=== PATIENT | female | born 1950 | race Caucasian/White ===

== ENCOUNTER 2020-06-30 09:44 | Emergency (ER) | payer MEDICARE, OTHER ==
[~2020-06-30] VITALS: Ht 162.6 cm; Wt 82.5 kg
[2020-06-30 09:48] VITALS: BP 104/61
--- NOTE | 2020-06-30 09:54 | PHYS DOC ---
General Adult EDM: Chief Complaint: MULTIPLE COMPLAINTS HPI: HPI: The history was obtained from the patient. Patient is a 69-year-old female with PMH hypothyroidism, hypertension, anxiety who presents with a chief complaint of lower extremity swelling bilaterally. Patient states she experienced a non-s yncopal fall 2 hours prior to arrival. States she was walking with the assistance of her walker when the walker gave out. She states this caused her to fall to the ground. She denies striking her head or loss of consciousness. She states that she has no pain after her fall. She states that she was unable to get herself off of the floor. She states that she was on the ground for approximate 2 hours. She states that she did not want to come to the emergency department but her family and EMS convinced her to have her lower extremities evaluated. She notes lower extremity swelling. She is unsure of how long this is been going on for. She notes this is happened once 6 years ago and she received medication. She does not know what medicine she took. Denies chest pain or shortness of breath. Denies syncope. Denies fevers or cough. Denies any recent medication changes or antibiotics. No other complaints. Patient denies any history of immobilization greater than 48 hours, recent hospitalizations, recent surgery, recent trauma, , oral contraceptive usage, hormone replacement therapy, air travel greater than 8 hours, recent infectious disease, or general deterioration of their overall condition. Review of Systems: Review of Systems: Constitutional: Denies fever or chills Eyes: Denies change in visual acuity HENT: Denies nasal congestion or sore throat Respiratory: Denies cough or shortness of breath Cardiovascular: Denies chest pain or edema GI: Denies abdominal pain, nausea, vomiting, bloody stools or diarrhea : Denies dysuria Musculoskeletal: Denies back pain or joint pain Integument: Denies rash Neurologic: Denies headache, focal weakness or sensory changes Endocrine: Denies polyuria or polydipsia Lymphatic: Denies swollen glands Psychiatric: Denies depression or anxiety Heart Score: Risk Factors: Risk Factors: DM, Current or recent (<one month) smoker, HTN, HLP, family hi story of CAD, obesity. Risk Scores: Score 0 - 3: 2.5% MACE over next 6 weeks - Discharge Home Score 4 - 6: 20.3% MACE over next 6 weeks - Admit for Clinical Observation Score 7 - 10: 72.7% MACE over next 6 weeks - Early Invasive Strategies Physical Exam: PE: Constitutional: Well developed, well nourished, no acute distress, non-toxic appearance. [] HENT: Normocephalic, atraumatic, bilateral external ears normal, oropharynx moist, no oral exudates, nose normal. [] Eyes: PERRLA, EOMI, conjunctiva normal, no discharge. [] Neck: Normal range of motion, no tenderness, supple, no stridor. [] Cardiovascular:Heart rate regular rhythm, no murmur [] Lungs & Thorax: Bilateral breath sounds clear to auscultation [] Abdomen: Bowel sounds normal, soft, no tenderness, no masses, no pulsatile masses. [] Skin: Warm, dry, no erythema, no rash. [] Back: No tenderness, no CVA tenderness. [] Extremities: No tenderness, no cyanosis, no clubbing, ROM intact. +2-4 pitting edema lower extremities bilaterally. Mild overlying erythema to the left lower extremity. Neurologic: Alert and oriented X 3, normal motor function, normal sensory function, no focal deficits noted. [] Psychologic: Affect normal, judgement normal, mood normal. [] Current Patient Data: Labs: Laboratory Tests Test 06/30/20 10:10 White Blood Count 8.6 x10^3/uL Red Blood Count 3.34 x10^6/uL Hemoglobin 11.1 g/dL Hematocrit 32.7 % Mean Corpuscular Volume 98 fL Mean Corpuscular Hemoglobin 33 pg Mean Corpuscular Hemoglobin Concent 34 g/dL Red Cell Distribution Width 12.9 % Platelet Count 279 x10^3/uL Neutrophils (%) (Auto) 85 % Lymphocytes (%) (Auto) 8 % Monocytes (%) (Auto) 7 % Eosinophils (%) (Auto) 0 % Basophils (%) (Auto) 0 % Neutrophils # (Auto) 7.3 x10^3uL Lymphocytes # (Auto) 0.7 x10^3/uL Monocytes # (Auto) 0.6 x10^3/uL Eosinophils # (Auto) 0.0 x10^3/uL Basophils # (Auto) 0.0 x10^3/uL Sodium Level 127 mmol/L Potassium Level 4.5 mmol/L Chloride Level 94 mmol/L Carbon Dioxide Level 23 mmol/L Anion Gap 10 Blood Urea Nitrogen 20 mg/dL Creatinine 1.4 mg/dL Estimated GFR (Cockcroft-Gault) 37.5 Glucose Level 114 mg/dL Calcium Level 8.8 mg/dL Creatine Kinase 62 U/L DA-Vvq-[id number]-Type Natriuretic Peptide 939 pg/mL Current Medications Medications (Trade) Dose Ordered Sig/La Route PRN Reason Start Time Stop Time Status Last Admin Dose Admin Cephalexin HCl (Keflex) 1,000 mg 1X ONCE PO 06/30/20 10:45 06/30/20 11:01 DC 06/30/20 11:02 Vital Signs: Vital Signs Date Time Temp Pulse Resp B/P (MAP) Pulse Ox O2 Delivery O2 Flow Rate FiO2 06/30/20 09:48 98.3 92 20 104/61 (75) 97 06/30/20 09:44 98.3 92 18 104/61 (75) 97 Room Air EKG: EKG: [] Radiology/Procedures: Radiology/Procedures: [address] [address] IMAGING REPORT Signed PATIENT: DANIELA CURTIS ACCOUNT: [id number] : 1950 LOCATION: ER AGE: 69 SEX: F EXAM STATUS: REG ER ORD. PHYSICIAN: ABY GUDINO DO REASON: leg swelling PROCEDURE: VENOUS LOWER EXT BILATERAL Bilateral lower extremity venous doppler ultrasound History: Leg swelling, blisters of the calves bilaterally Comparison: None Findings: Multiple grayscale, color, and duplex spectral analysis sonographic images were acquired of the bilateral lower extremity veins to evaluate for the presence of DVT. There is normal phasicity. Normal compression, color-flow, and augmentation is demonstrated from the bilateral common femoral to the popliteal veins. There is normal color flow of the proximal greater saphenous and profunda femoris veins. Calf veins are poorly visualized due to patient's body habitus. Impression: 1. There is no evidence of deep venous thrombosis from the bilateral common femoral to the popliteal veins. Calf veins are poorly visualized. Electronically signed by: Eliza Toribio MD (06/30/2020 11:00 AM) [id number] DICTATED AND SIGNED BY: ELIZA TORIBIO MD DATE: 06/30/20 1100 CC: PCPLEO; ABY GUDINO DO ~ [place] [address] IMAGING REPORT Signed PATIENT: DANIELA CURTIS ACCOUNT: [id number] : 1950 LOCATION: ER AGE: 69 SEX: F EXAM STATUS: REG ER ORD. PHYSICIAN: ABY GUDINO DO REASON: swelling PROCEDURE: CHEST AP ONLY Examination: CHEST AP ONLY History: swelling Comparison: None. Findings: AP portable upright frontal view of the chest was obtained. The cardiomediastinal silhouette is normal. Lungs are clear. There is no pneumothorax. No pleural effusion is appreciated. No acute bone abnormality. Plate and screws involving the right humeral head and proximal shaft. IMPRESSION: No acute cardiopulmonary process. Electronically signed by: Jae Littlejohn MD (06/30/2020 10:15 AM) [id number] DICTATED AND SIGNED BY: JAE LITTLEJOHN MD DATE: 06/30/20 1015 CC: PCPLEO; ABY GUDINO DO ~ [] Course & Med Decision Making: Course & Med Decision Making Pertinent Labs and Imaging studies reviewed. (See chart for details) [] Patient is a 69-year-old female who presents with a chief complaint of fall and bilateral leg swelling. States that she did not want to come to the hospital but EMS and her daughter convinced her to. Initial vital signs unremarkable. Physical exam noted above. EKG deferred as she denies any chest pain or shortness of breath prior to falling. She describes a non-syncopal fall. Basic labs were obtained. She does have a low sodium of 127 with an DREA of 1.4. CK normal. Slightly elevated proBNP. Ultrasound imaging of the legs bilaterally was obtained reveals no DVT. Left lower extremity does have some erythema could be very early clinical cellulitis. I did discuss results of labs and imaging in great detail the patient. I did discuss my recommendation for hospitalization given her abnormal electrolytes. However, I am also concerned for her gait stability at home. While transferring to bed to commode the patie nt did appear quite unstable. Patient states that she would like to go home and is declining hospitalization. She states that she has a walker at home to assist her in ambulation. I did explain to her that electrolyte abnormalities can be life-threatening without detection. Patient does appear to have capacity at this time. She is alert and oriented x3. She does have understanding for basic healthcare needs and potential consequences including life loss. At this time patient is electing to leave AGAINST MEDICAL ADVICE. I encouraged her to report back to emergency department at any time should he want to be reevaluated. Instructed to follow-up with her primary care physician in the next 1-2 business days. Will be discharged home with a course of Keflex for her left lower extremity. Dragon Disclaimer: [employer]Hop Disclaimer: This electronic medical record was generated, in whole or in part, using a voice recognition dictation system. Departure Departure: Impression: Primary Impression: Fall Qualified Codes: W19.XXXA - Unspecified fall, initial encounter Additional Impressions: Leg swelling Hyponatremia DREA (acute kidney injury) Disposition: 07 AGAINST MEDICAL ADVICE Condition: STABLE Patient Instructions: Hyponatremia Additional Instructions: Please follow-up with your primary care physician in the next 1-2 business days. Please return the emergency department at any time should he want to be reevaluated. Scripts Cephalexin (KEFLEX) 500 Mg Capsule 500 MG PO QID for cellulitis for 7 Days, #28 TAB Prov: ABY GUDINO DO 06/30/20 Justification of Admission: Justification of Admission: Justification of Admission Dx: N/A ABY GUDINO DO Jun 30, 2020 09:54
--- NOTE | 2020-06-30 10:18 | RAD ---
Examination: CHEST AP ONLY History: swelling Comparison: None. Findings: AP portable upright frontal view of the chest was obtained. The cardiomediastinal silhouette is normal. Lungs are clear. There is no pneumothorax. No pleural effusion is appreciated. No acute bone abnormality. Plate and screws involving the right humeral head and proximal shaft. IMPRESSION: No acute cardiopulmonary process. Electronically signed by: Blayne Stroud MD (06/30/2020 10:15 AM) [id number]
[2020-06-30 10:43] LABS: BASO % 0 % (0-3); EOS % 0 % (0-3); HEMATOCRIT 32.7 % (36.0-47.0); HEMOGLOBIN 11.1 g/dL (12.0-15.5); LYMPH # 0.7 x10^3/uL (1.0-4.8); LYMPH % 8 % (24-48); MEAN CORPUSCULAR HEMOGLOBIN 33 pg (25-35); MEAN CORPUSCULAR HGB CONC 34 g/dL (31-37); MEAN CORPUSCULAR VOLUME 98 fL (79-100); MONO # 0.6 x10^3/uL (0.0-1.1); MONO % 7 % (0-9); NEUT # 7.3 x10^3uL (1.8-7.7); NEUT % 85 % (31-73); PLATELET COUNT 279 x10^3/uL (140-400); RED BLOOD COUNT 3.34 x10^6/uL (3.50-5.40); RED CELL DISTRIBUTION WIDTH 12.9 % (11.5-14.5); WHITE BLOOD COUNT 8.6 x10^3/uL (4.0-11.0)
[2020-06-30] MEDS ORDERED: CEPHALEXIN 250 MG CAPSULE PO ONE (10:45)
--- NOTE | 2020-06-30 11:03 | RAD ---
Bilateral lower extremity venous doppler ultrasound History: Leg swelling, blisters of the calves bilaterally Comparison: None Findings: Multiple grayscale, color, and duplex spectral analysis sonographic images were acquired of the bilateral lower extremity veins to evaluate for the presence of DVT. There is normal phasicity. Normal compression, color-flow, and augmentation is demonstrated from the bilateral common femoral to the popliteal veins. There is normal color flow of the proximal greater saphenous and profunda femoris veins. Calf veins are poorly visualized due to patient's body habitus. Impression: 1. There is no evidence of deep venous thrombosis from the bilateral common femoral to the popliteal veins. Calf veins are poorly visualized. Electronically signed by: Kevin Linares MD (06/30/2020 11:00 AM) [id number]
[2020-06-30 11:28] LABS: CALCIUM 8.8 mg/dL (8.5-10.1); CREATININE 1.4 mg/dL (0.6-1.0); GFR 37.5; POTASSIUM 4.5 mmol/L (3.5-5.1)
[2020-06-30] MEDS ORDERED: CEPH-264 PO (12:10)
[2020-06-30 12:39] LABS: BACTERIA,URINE MANY /HPF (0-FEW); BILIRUBIN,URINE NEG (NEG); CLARITY,URINE HAZY; COLOR,URINE YELLOW; GLUCOSE,URINE NEG (NEG); NITRITE,URINE POS (NEG); SQUAMOUS EPITHELIAL CELL,UR FEW /LPF; UROBILINOGEN,URINE 0.2 mg/dL (0.2 mg/dL); WBC,URINE 20-40 /HPF (0-4)
== END 2020-06-30 12:15 | disposition left against medical advice (07) ==
LOC: ER 09:44
DX: N17.9 Acute kidney failure, unspecified (principal); E87.1 Hypo-osmolality and hyponatremia; R22.43 Localized swelling, mass and lump, lower limb, bilateral; E03.9 Hypothyroidism, unspecified; I10 Essential (primary) hypertension; F41.9 Anxiety disorder, unspecified; W18.39XA Other fall on same level, initial encounter; Y93.01 Activity, walking, marching and hiking; Y92.89 Other specified places as the place of occurrence of the external cause; Y99.8 Other external cause status
CPT/HCPCS: 36415; 71045; 80048; 81001; 82550; 83880; 85025; 87077; 87086; 87186; 93970; 99285

== ENCOUNTER 2020-07-24 15:59 | Inpatient (IN) | payer MEDICARE ==
[~2020-07-24] VITALS: Ht 162.6 cm; Wt 76.5 kg
[~2020-07-24 15:59] MED LIST: CEPH-264 PO
--- NOTE | 2020-07-24 16:20 | PHYS DOC ---
Past History Past Medical History: Anxiety, Dementia, Hypertension Past Surgical History: Tonsillectomy, Other Additional Past Surgical Histo: L foot Alcohol Use: Occasionally General Adult EDM: Chief Complaint: CELLULITIS HPI: HPI: 67-year-old brought in by EMS for multiple falls. Patient has been following at home, uses walker but says she has liver leg weakness. Was seen recently and treated for cellulitis. Patient states she took her antibiotics but per said she never had a prescription filled. Patient has not seen her primary care provider in about 6 months because they order Lolita. Per son she has had worsening memory issues, for example paying bills. Lives alone and is at times been unable to get herself up off the floor. Longest downtime 1 hour. She denies any head injuries or loss of consciousness. Review of Systems: Review of Systems: Constitutional: Denies fever or chills Eyes: Denies change in visual acuity HENT: Denies nasal congestion or sore throat Respiratory: Denies cough or shortness of breath Cardiovascular: Denies chest pain or edema GI: Denies abdominal pain, nausea, vomiting, bloody stools or diarrhea : Denies dysuria Musculoskeletal: Denies back pain or joint pain Integument: Denies rash redness to left lower leg Neurologic: Denies headache, lower extremity weakness or sensory changes Endocrine: Denies polyuria or polydipsia Lymphatic: Denies swollen glands Psychiatric: Denies depression or anxiety Heart Score: Risk Factors: Risk Factors: DM, Current or recent (<one month) smoker, HTN, HLP, family history of CAD, obesity. Risk Scores: Score 0 - 3: 2.5% MACE over next 6 weeks - Discharge Home Score 4 - 6: 20.3% MACE over next 6 weeks - Admit for Clinical Observation Score 7 - 10: 72.7% MACE over next 6 weeks - Early Invasive Strategies Allergies: Allergies: Allergies Coded Allergies Type Severity Reaction Last Updated Verified No Known Drug Allergies 06/30/20 No Physical Exam: PE: Constitutional: Well developed, well nourished, no acute distress, non-toxic appearance. [] HENT: Normocephalic, atraumatic, bilateral external ears normal, oropharynx moist, no oral exudates, nose normal. [] Eyes: PERRLA, EOMI, conjunctiva normal, no discharge. [] Neck: Normal range of motion, no tenderness, supple, no stridor. [] Cardiovascular:Heart rate regular rhythm, no murmur [] Lungs & Thorax: Bilateral breath sounds clear to auscultation [] Abdomen: Bowel sounds normal, soft, no tenderness, no masses, no pulsatile masses. [] Skin: Warm, dry, no erythema, no rash. [] Right lower extremity erythema Back: No tenderness, no CVA tenderness. [] Extremities: No tenderness, no cyanosis, no clubbing, ROM intact, no edema. [] Neurologic: Alert poor memory, normal motor function, normal sensory function, no focal deficits noted. [] Psychologic: Affect normal, judgement normal, mood normal. [] Current Patient Data: Vital Signs: Vital Signs Date Time Temp Pulse Resp B/P (MAP) Pulse Ox O2 Delivery O2 Flow Rate FiO2 07/24/20 16:00 98.3 84 18 89/52 (64) 98 Room Air EKG: EKG: Normal sinus rhythm, heart rate 90 bpm, normal axis, no ectopy, normal intervals, no ST elevation or depression [] Radiology/Procedures: Radiology/Procedures: CHEST AP ONLY Clinical History: Reason: fall / Spl. Instructions: / History: Technique: AP view of the chest was obtained at 07/24/2020 4:21 PM. Comparison: June 30, 2020. Findings: The cardiomediastinal silhouette is normal. The pulmonary vasculature is normal. The lungs and pleural margins are clear. There has been prior repair of a left humeral head neck fracture. Impression: No evidence of an acute cardiopulmonary process.[] Impressions: CT Head W/O Contrast: History: Reason: falls / Spl. Instructions: / History: Comparison: none Axial images were obtained without contrast. There is moderate diffuse atrophy. There is no mass effect, extraaxial fluid collections or hydrocephalus. There is no focal loss of jalloh-white matter distinction to suggest acute ischemia, i.e. stroke. Impression: No acute findings. PQRS Compliance Statement: One or more of the following individualized dose reduction techniques were utilized for this examination: 1. Automated exposure control 2. Adjustment of the mA and/or kV according to patient size 3. Use of iterative reconstruction technique Course & Med Decision Making: Course & Med Decision Making Pertinent Labs and Imaging studies reviewed. (See chart for details) [] Dragon Disclaimer: Dragon Disclaimer: This electronic medical record was generated, in whole or in part, using a voice recognition dictation system. Departure Departure: Disposition: DC HOME SELF CARE/HOMELESS Condition: STABLE Referrals: PCP,LEO (PCP) SUZANNA DEL A ROSA MD Jul 24, 2020 16:20
[2020-07-24 16:49] LABS: BASO % 0 % (0-3); EOS % 0 % (0-3); HEMATOCRIT 30.4 % (36.0-47.0); HEMOGLOBIN 10.2 g/dL (12.0-15.5); LYMPH % 14 % (24-48); MEAN CORPUSCULAR HEMOGLOBIN 33 pg (25-35); MEAN CORPUSCULAR HGB CONC 34 g/dL (31-37); MEAN CORPUSCULAR VOLUME 98 fL (79-100); MONO # 0.5 x10^3/uL (0.0-1.1); MONO % 7 % (0-9); NEUT # 5.2 x10^3uL (1.8-7.7); NEUT % 78 % (31-73); PLATELET COUNT 245 x10^3/uL (140-400); RED BLOOD COUNT 3.11 x10^6/uL (3.50-5.40); RED CELL DISTRIBUTION WIDTH 11.9 % (11.5-14.5); WHITE BLOOD COUNT 6.6 x10^3/uL (4.0-11.0)
[2020-07-24 16:53] LABS: CALCIUM 9.5 mg/dL (8.5-10.1); CREATININE 1.2 mg/dL (0.6-1.0); GFR 44.8; POTASSIUM 4.5 mmol/L (3.5-5.1)
[2020-07-24 17:06] LABS: ALBUMIN 2.8 g/dL (3.4-5.0); MAGNESIUM 2.3 mg/dL (1.8-2.4); PHOSPHORUS 3.8 mg/dL (2.6-4.7); TOTAL BILIRUBIN 0.5 mg/dL (0.2-1.0); TOTAL PROTEIN 5.6 g/dL (6.4-8.2)
[2020-07-24 17:08] LABS: BILIRUBIN,URINE NEG (NEG); CLARITY,URINE HAZY; COLOR,URINE YELLOW; GLUCOSE,URINE NEG (NEG)
[2020-07-24 17:09] LABS: BACTERIA,URINE MOD /HPF (0-FEW); NITRITE,URINE NEG (NEG); RBC,URINE RARE /HPF (0-2); SQUAMOUS EPITHELIAL CELL,UR FEW /LPF; UROBILINOGEN,URINE 0.2 mg/dL (0.2 mg/dL); WBC,URINE >40 /HPF (0-4)
--- NOTE | 2020-07-24 17:13 | RAD ---
CT Head W/O Contrast: History: Reason: falls / Spl. Instructions: / History: Comparison: none Axial images were obtained without contrast. There is moderate diffuse atrophy. There is no mass effect, extraaxial fluid collections or hydrocephalus. There is no focal loss of jalloh-white matter distinction to suggest acute ischemia, i.e. stroke. Impression: No acute findings. RS Compliance Statement: One or more of the following individualized dose reduction techniques were utilized for this examination: 1. Automated exposure control 2. Adjustment of the mA and/or kV according to patient size 3. Use of iterative reconstruction technique Electronically signed by: Carlos Leal III, MD (07/24/2020 5:11 PM) [facility]
--- NOTE | 2020-07-24 17:16 | RAD ---
CHEST AP ONLY Clinical History: Reason: fall / Spl. Instructions: / History: Technique: AP view of the chest was obtained at 07/24/2020 4:21 PM. Comparison: June 30, 2020. Findings: The cardiomediastinal silhouette is normal. The pulmonary vasculature is normal. The lungs and pleural margins are clear. There has been prior repair of a left humeral head neck fracture. Impression: No evidence of an acute cardiopulmonary process. Electronically signed by: Carlos Leal III, MD (07/24/2020 5:13 PM) [facility]
[2020-07-24] MEDS ORDERED: VANCOMYCIN 2 GM in IV NORMAL SALINE 500ML 500 ML IV ONE (17:45)
[2020-07-24] MEDS ORDERED: ONDANSETRON PF 4 MG/2 ML VIAL. IVP PRN (17:45)
[2020-07-24] MEDS ORDERED: IV NORMAL SALINE 500ML 500 ML ONE (17:49)
[2020-07-24] MEDS ORDERED: cefTRIAXone SODIUM 1 GM VIAL ONE (17:49)
[2020-07-24] MEDS ORDERED: VANCOMYCIN 1 GM VIAL. ONE (17:49)
[2020-07-24] MEDS ORDERED: IV NORMAL SALINE 50ML 50 ML ONE (17:49)
--- NOTE | 2020-07-24 17:56 | EKG ---
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
--- NOTE | 2020-07-24 18:29 | NUR ---
PATIENT ARRIVED TO UNIT VIA EMS. PATIENT IS PLEASANT AND COOPERATIVE. PATIENT'S VS OBTAINED AND ARE STABLE. PATIENT IS ORIENTED TO UNIT AND PROCEDURES. PATIENT IS OFFERED FOOD AND DRINK AND ACCEPTS. PATIENT IS RESTING IN BED AT THIS TIME. DR. ESPINOSA NOTIFIED OF ADMISSION. WILL CONTINUE TO MONITOR.
[2020-07-24 19:41] VITALS: BP 90/61
[2020-07-24] MEDS: IV NORMAL SALINE 1,000ML 1,000 ML IV SCH (20:30)
[2020-07-24] MEDS ORDERED: LOSA50TA14 PO (21:27)
[2020-07-24] MEDS ORDERED: ACETA (21:27)
[2020-07-24] MEDS ORDERED: SPIR25TA5 PO (21:27)
[2020-07-24] MEDS ORDERED: HYDROCODONE (21:27)
[2020-07-24] MEDS ORDERED: CITA40TA12 PO (21:27)
[2020-07-24] MEDS ORDERED: CLON0.5T4 PO (21:27)
[2020-07-24] MEDS ORDERED: LEVO88TA2 PO (21:29)
[2020-07-24 22:49] VITALS: BP 84/55
--- NOTE | 2020-07-24 23:53 | NUR ---
Reviewed with PT her PMH, PSH, SH, FH and medications. Medications reviewed with Dr. Kearns, medications continued as appropriate. PT started on IVF at 60mL/hr r/t hyponatremia. Spoke with family after assessment (son-in-law). Advised family of need for close observation and additional assistance after discharge r/t multiple falls at home. Family and PT are in agreement for PT to stay with them for an undetermined period of time and would also like to arrange for Home Health to start seeing the PT. CM consult placed.
[2020-07-25 05:40] VITALS: BP 88/51
[2020-07-25] MEDS: LEVOTHYROXINE 88 MCG TABLET PO SCH (05:50)
[2020-07-25 07:02] LABS: BASO % 1 % (0-3); EOS # 0.1 x10^3/uL (0.0-0.7); EOS % 2 % (0-3); HEMATOCRIT 29.6 % (36.0-47.0); HEMOGLOBIN 9.8 g/dL (12.0-15.5); LYMPH # 1.3 x10^3/uL (1.0-4.8); LYMPH % 27 % (24-48); MEAN CORPUSCULAR HEMOGLOBIN 33 pg (25-35); MEAN CORPUSCULAR HGB CONC 33 g/dL (31-37); MEAN CORPUSCULAR VOLUME 98 fL (79-100); MONO # 0.5 x10^3/uL (0.0-1.1); MONO % 10 % (0-9); NEUT % 62 % (31-73); PLATELET COUNT 226 x10^3/uL (140-400); RED BLOOD COUNT 3.01 x10^6/uL (3.50-5.40); RED CELL DISTRIBUTION WIDTH 12.3 % (11.5-14.5); WHITE BLOOD COUNT 4.8 x10^3/uL (4.0-11.0)
[2020-07-25 07:11] LABS: CALCIUM 8.2 mg/dL (8.5-10.1); GFR 55.3; POTASSIUM 3.6 mmol/L (3.5-5.1)
[2020-07-25] MEDS ORDERED: LOSARTAN 50 MG TABLET. PO SCH (09:00)
--- NOTE | 2020-07-25 09:50 | HP ---
ADMIT DATE: 07/24/2020 ATTENDING PHYSICIAN: Dr. Espinosa. CHIEF COMPLAINT: Weakness and falls. HISTORY OF PRESENT ILLNESS: The patient is a 69-year-old female admitted through the ED with multiple falls. She has been falling at home, uses a walker, but she has severe leg weakness. She was seen recently and treated for cellulitis. She has chronic stasis dermatitis with ichthyosis. The antibiotics were never filled. She has not seen a primary care provider in the last year because of the coronavirus infection. According to her son, she has had worsening memory issues have been paying bills. She lives alone, unable to get herself off the floor, the longest down time is 1 hour. She denied recent head injury. She is on benzodiazepines as well as pain meds. In addition, she admits to drinking alcohol several days out of the week depending the circumstances and I suspect she drinks more and on a regular basis. She is admitted then for further evaluation. The CT of the head in the ED showed no evidence of acute stroke. It showed atrophy and microvascular changes. PAST MEDICAL HISTORY: Significant for anxiety, hypertension and frequent falls. She has had several surgeries in her legs, knee and hip repair. ALLERGIES: She has no recorded drug allergies. CURRENT MEDICATIONS: Scheduled on admission included clonazepam, Celexa, Synthroid, losartan, Aldactone and hydrocodone. FAMILY HISTORY: Mom at age 90 of complications of old age. Father of ulcerative colitis at a very young age. She is unclear about the exact age at the time of . SOCIAL HISTORY: She is a retired high adult school counselor. She used to smoke. She has since quit. She does drink alcohol on a regular basis. REVIEW OF SYSTEMS: Significant for the frequent fall. She lives alone. She has not been able to drive a car. She is getting forgetful of not pay to her bills. She denied any chest pain or palpitation. All other systems reviewed and turned to be negative. PHYSICAL EXAMINATION: GENERAL: When I saw her, this is a pleasant female who was fairly alert. VITAL SIGNS: Initial blood pressure was 90/61, pulse 95 and regular. She was afebrile. HEENT: Head is without trauma. Pupils are reactive. Sclerae nonicteric. Oropharynx clear. NECK: Supple, no bruits identified. LUNGS: Otherwise clear. CARDIOVASCULAR: Showed regular heart tones. No gallops. Peripheral pulses are palpable and full. ABDOMEN: Soft, no guarding, no organomegaly. Bowel sounds were hypoactive. EXTREMITIES: Showed significant stasis dermatitis from the knees down. There is associated ichthyosis. There is minimal swelling. NEUROLOGIC FUNCTION: The patient is alert mentally. Speech is fluent. She is nonambulatory at this time. There are no focal deficits. PERTINENT LABORATORY STUDIES: The hemoglobin was 10.2 g/dL, white count 6600. Electrolytes: Sodium 133, potassium 3.6 mEq, creatinine is 1.0 mg percent. ASSESSMENT: 1. A 69-year-old female with frequent falls. 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 2. Dehydration. 3. Hypertension, now hypotensive. 4. Excess use of benzodiazepine and pain medications. 5. Hypothyroidism, on replacement. PLAN: 1. Admit to the inpatient unit. 2. Gentle IV hydration. 3. Pain meds, benzodiazepines, blood pressure meds and diuretics have been held. 4. Physical therapy consultation. 5. Social service to help evaluate the patient. 6. I will try to contact the family. She says that there have been tentative plans for her to moving with her daughter. PRANAY ESPINOSA MD DR: JUAN/brennen JOB#: [id number] / [id number]
[2020-07-25] MEDS: CITALOPRAM 20 MG TABLET. PO SCH (09:51)
[2020-07-25 10:25] VITALS: BP 93/55
--- NOTE | 2020-07-25 10:30 | NUR ---
NSG NOTE; DIARRHEA PT HAD SMALL AMT LIQUID STOOL THIS AM AND STATED SHE HAD SEVERAL LOOSE STOOLS OVERNIGHT AND FOR THE PAST WEEK. PT PLACED IN CDIFF PRECAUTIONS WITH STOOL SPECIMEN TO BE OBTAINED
[2020-07-25] MEDS: IV NORMAL SALINE 1,000ML 1,000 ML IV SCH ×2 (13:30→22:00)
[2020-07-25 14:20] VITALS: BP 94/56
[2020-07-25 14:21] VITALS: BP 86/52
[2020-07-25 19:24] VITALS: BP 87/51
[2020-07-25 22:19] VITALS: BP 95/59
[2020-07-26 04:11] VITALS: BP 96/58
[2020-07-26] MEDS: IV NORMAL SALINE 1,000ML 1,000 ML IV SCH (06:25)
[2020-07-26] MEDS: LEVOTHYROXINE 88 MCG TABLET PO SCH (06:28)
[2020-07-26 07:06] LABS: CALCIUM 8.1 mg/dL (8.5-10.1); CREATININE 0.7 mg/dL (0.6-1.0); GFR 83.5; POTASSIUM 3.3 mmol/L (3.5-5.1)
[2020-07-26] MEDS: CITALOPRAM 20 MG TABLET. PO SCH (08:22)
[2020-07-26] MEDS: DIPHENOXYLATE/ATROPINE TABLET. PO PRN ×2 (12:28→20:22)
[2020-07-26] MEDS ORDERED: ONDANSETRON PF 4 MG/2 ML VIAL. IVP PRN (12:30)
--- NOTE | 2020-07-26 14:03 | PN ---
DATE: 07/26/2020 ATTENDING PHYSICIAN: Dr. Espinosa. SUBJECTIVE: Still weak, still having loose stools. OBJECTIVE FINDINGS: Stool specimen for Clostridium difficile is still pending. VITAL SIGNS: Blood pressure is 96/58, pulse 81. He was afebrile, oxygen saturation 96% on room air. HEENT: Head is without trauma. Pupils are reactive. Sclerae nonicteric. Oropharynx clear. NECK: Supple, no bruits. LUNGS: Clear. CARDIOVASCULAR: Showed regular heart tones. ABDOMEN: Soft. EXTREMITIES: Showed stasis dermatitis with ichthyosis. NEUROLOGIC FUNCTION: Focally intact. Little bit of a tremor. LABORATORY STUDIES: Creatinine 0.7, potassium 3.3 mEq. ASSESSMENT: 1. A 69-year-old female with frequent falls, I suspect alcohol-related issues. 2. Dehydration. 3. Hypertension, now hypotensive. 4. Excess use of benzodiazepines. 5. Hypothyroidism, on replacement. PLAN: 1. Continue IV hydration. 2. Pain meds, benzodiazepines, blood pressure meds and diuretics have been held. 3. Physical therapy evaluation. 4. dining services manager to help with discharge planning. 5. Follow up chemistries in the morning. PRANAY ESPINOSA MD DR: JUAN/brennen JOB#: [id number] / [id number]
[2020-07-26 14:26] VITALS: BP 91/56
[2020-07-26 19:51] VITALS: BP 93/51
[2020-07-26 22:41] VITALS: BP 107/61
[2020-07-26 23:10] VITALS: BP 112/76
[2020-07-27] MEDS: LEVOTHYROXINE 88 MCG TABLET PO SCH (05:42)
[2020-07-27] MEDS: DIPHENOXYLATE/ATROPINE TABLET. PO PRN ×2 (05:54→14:30)
[2020-07-27 06:17] VITALS: BP 153/78
[2020-07-27 06:28] LABS: CALCIUM 8.1 mg/dL (8.5-10.1); CREATININE 0.7 mg/dL (0.6-1.0); GFR 83.5; POTASSIUM 3.5 mmol/L (3.5-5.1)
[2020-07-27] MEDS: CITALOPRAM 20 MG TABLET. PO SCH (08:18)
[2020-07-27 11:09] VITALS: BP 102/61
--- NOTE | 2020-07-27 11:30 | NUR ---
NURSING NOTE PT WAS IN BED THIS AM UPON ASSESSMENT AND MEDICATION ADMINISTRATION. PT IS A&O. PRIOR TO ASSESSMENT, PT VERBALIZING SEVERAL COMPLAINTS ABOUT NIGHT AIDE STATING THAT HER STUFF WAS THROWN EVERYWHERE, THE AIDE WAS NOT TIDY, AND THAT HER GLASSES WERE "TOSSED" TO THE OTHER TABLE ETC. THIS NURSE ASKED PT WHAT SHE COULD DO TO HELP TIDY UP HER AREA. PT STATES SHE WANTED HER LOTION MOVED FROM BEDSIDE TABLE TO HER NIGHT STAND BECAUSE IT IS CAUSING TOO MUCH CLUTTER, AND HER GLASSES MOVED CLOSER TO HER. PT THANKFUL FOR THE HELP. PT IS X1 ASSIST WITH WALKER AND GAIT BELT TO BEDSIDE COMMODE, PT STILL HAVING VERY SMALL AMOUNT OF DIARRHEA WHEN URINATING. PT IS VERY SLOW MOVING AND STILL HAVING SIGNIFICANT WEAKNESS, HOWEVER, PLANS TO GO HOME TO HER DAUGHTER AND SON-IN-LAWS HOUSE UPON DISCHARGE WITH HOME HEALTH TO HAVE MORE HELP AT HOME. PT REQUEST IMODIUM THIS AM, HOWEVER, IT WAS ADMINISTERED AT 0600 WITH HER SYNTHROID AND THIS NURSE WAS UNABLE TO GIVE AT THAT TIME. PT IS CALM AND COOPERATIVE WITH CARES, DID GET UP AND WORK WITH PT/OT THIS AM AND BRUSHED HER TEETH, REFUSED TO CHANGE GOWN ETC. WILL CONTINUE TO MONITOR. SHAMA CARMONA.
[2020-07-27] MEDS ORDERED: CEFD300C PO (12:23)
--- NOTE | 2020-07-27 12:35 | DISCH ---
HOME HEALTH DISCHARGE/MEDS DISCHARGE INFORMATION: Discharge Date: Jul 27, 2020 Final Diagnosis: Problems Medical Problems: (1) Cellulitis Status: Acute tristian hypokalemia UTI Condition on Discharge: Stable CODE STATUS: Code Status: Full HOME HEALTH: Face to Face: I certify this patient is under my care and that I, or a nurse practitioner or physician's language assistant working with me, had a face to face encounter that meets the physician face to face encounter requirements with this patient on 07/27/2020 Medical Condition(s): Other Occupational Therapy For: Evaluation/Treatment Speech Language Pathology For: Evaluation/Treatment POST DISCHARGE ORDERS: DIET AFTER DISCHARGE: Cardiac CERTIFICATION STATEMENT: Certification Statement: Based on the above finding, I certify that this patient is confined to the home and needs intermittent jail care, physical therapy and/or speech therapy, or continues to need occupational therapy.~ This patient is under my care, and I have initiated the establishment of the plan of care.~ This patient will be followed by myself or a community physician who will periodically review the plan of care. DISCHARGE MEDICATIONS: Home Meds Active Scripts Cefdinir (CEFDINIR) 300 Mg Capsule, 1 CAP PO BID for UTI for 7 Days, #14 CAP Prov:SALEEM ROBLEDO MD 07/27/20 Reported Medications Levothyroxine Sodium (SYNTHROID) 88 Mcg Tablet, 1 TAB PO DAILY06 for HYPOTHYROIDISM, #30 TAB 5 Refills 07/24/20 [HYDROCODONE/aceta] No Conflict Check, PRN QID PRN for PAIN 07/24/20 Clonazepam (CLONAZEPAM) 0.5 Mg Tablet, 2 TAB PO DAILY for ANXIETY, #30 TAB 07/24/20 Losartan Potassium (Losartan Potassium) 50 Mg Tablet, 50 MG PO DAILY for HTN, TAB 07/24/20 Citalopram Hydrobromide (CELEXA) 40 Mg Tablet, 40 MG PO DAILY for DEPRESSION, TAB 07/24/20 Spironolactone (SPIRONOLACTONE) 25 Mg Tablet, 1 TAB PO DAILY for CHF, #90 TAB 1 Refill 07/24/20 SALEEM ROBLEDO MD Jul 27, 2020 12:35
--- NOTE | 2020-07-27 13:42 | DS ---
DATE OF DISCHARGE: HOSPITAL COURSE: The patient is a 69-year-old female patient who was admitted originally on 07/2018 with multiple falls. She apparently lives at home and has fallen multiple times because of weakness, was seen recently and was treated for cellulitis. The patient has not seen any primary care physician in about 6 months, because per her son, she has worsening memory issues. She was extensively investigated in the Emergency Room and was basically admitted with dehydration, frequent falls. She was hypotensive and she was also found to be hypothyroid. She was admitted to inpatient unit, started on IV fluid. Her benzodiazepines, blood pressure medication, diuretics have been held and she did actually very well. Her lab work has clearly showed that the patient's dehydration has improved. She has hyponatremia that has risen up to 137 from 128. Her potassium also has improved and her BUN has improved from 24 down to 3 and her creatinine has also improved from 1.2-0.7. Her blood pressure has stabilized and has been up and about and therefore, a decision was made to discharge her home, I believe, to be with her daughter and to go there with home health to continue the process of rehabilitation. Her urine culture has grown more than 100,000 colony forming units per mL of Escherichia coli, sensitive to all antibiotics. PHYSICAL EXAMINATION: GENERAL: When I examined her this afternoon, she looked well and was clearly in no apparent respiratory distress, slightly pale. No jaundice, cyanosis or thyromegaly. No jugular venous distention or limb edema. VITAL SIGNS: Her heart rate was 83, blood pressure was 102/61, temperature was 98.7, respiratory rate was 20, and oxygen saturation was 97% on room air. HEAD, EYES, EARS, NOSE AND THROAT: Showed normocephalic, atraumatic. NECK: Supple. HEART: Showed normal first and second heart sounds. No gallop, rub or murmur. CHEST: Clear to auscultation. No crepitation or rhonchi. ABDOMEN: Distended, soft, nontender. NEUROLOGIC: She is awake, alert, responding appropriately. All cranial nerves are intact. She moves extremities without difficulty. Her intake was 1300. No output was recorded. LABORATORY DATA: Her lab work as of yesterday showed a white cell count 4800, hemoglobin 10, hematocrit 30, MCV 98 and platelet count 226,000. Her chemistry as of this morning showed serum sodium 137, potassium 3.5, chloride 106, bicarbonate 23, anion gap of 8, BUN 3, creatinine 0.7, estimated GFR was 83 mL per minute, glucose 82 and calcium was 8.1. Urinalysis showed that her urine was yellow, hazy with a pH of 5, specific gravity of 1.010. Urine was negative for protein, glucose, ketones. There was moderate amount of blood, negative for nitrite. There was moderate amount of leukocyte esterase, rare rbc's, more than 40 wbc's, and moderate amount of bacteria. Her stool for C. diff toxins were negative. Her urine culture has grown more than 100,000 colony-forming units per mL of gram-negative rods identified as Escherichia coli. Her blood cultures so far showed no growth after 2 days. As the patient is stabilized and remained hemodynamically stable, afebrile, decision was made to discharge her home with home health to continue on following medications: Cefdinir 300 mg twice a day for 7 days. She is on Celexa 40 mg once a day, clonazepam 1 mg at bedtime for anxiety, hydrocodone/APAP p.r.n. 4 times a day, levothyroxine 88 mcg once a day and losartan potassium 50 mg daily, and spironolactone 25 mg daily. FINAL DISCHARGE DIAGNOSES: Hypertension; hypothyroidism; anxiety and depression; dehydration; hyponatremia, resolved; hypokalemia, resolved. SALEEM ROBLEDO MD DR: AGUSTO/brennen JOB#: [id number] / [id number]
--- NOTE | 2020-07-27 15:59 | NUR ---
NURSING NOTE DISCHARGE PT DISCHARGED HOME WITH [facility] VIA WHEELCHAIR PICKED UP BY SON IN LAW, SCRIPT FOR UTI CALLED INTO [facility]. PT GIVEN WRITTEN AND VERBAL DISCHARGE INSTRUCTIONS. PT GIVEN FOLLOW UP INSTRUCTIONS BUT STATES SHE DOES NOT HAVE A PCP HERE IN [facility] BUT HAS ONE IN [place]. NO COMPLICATIONS. SHAMA CARMONA.
== END 2020-07-27 15:45 | disposition home health service (06) | DRG 640 ==
LOC: ER 15:59 → 1 SOUTH 17:41
PROVIDERS: ADMIT Hospitalist; ATTEND Internal Medicine
DX: E86.0 Dehydration (principal); E43 Unspecified severe protein-calorie malnutrition; E87.1 Hypo-osmolality and hyponatremia; E03.9 Hypothyroidism, unspecified; F03.90 Unspecified dementia, unspecified severity, without behavioral disturbance, psychotic disturbance, mood disturbance, and anxiety; F32.9 Major depressive disorder, single episode, unspecified; F41.9 Anxiety disorder, unspecified; I10 Essential (primary) hypertension; Z87.891 Personal history of nicotine dependence; E87.6 Hypokalemia; I95.9 Hypotension, unspecified; Z60.2 Problems related to living alone; Z68.28 Body mass index [BMI] 28.0-28.9, adult
CPT/HCPCS: 36415; 70450; 71045; 80048; 80053; 81001; 82140; 82550; 83605; 83735; 83880; 84100; 84484; 85025; 87040; 87077; 87086; 87186; 87493; 93005; 96365; 96368; J0696; J2405; J3370; J7040; 97535; 99285-25; J7030